=== PATIENT | male | born 1985 | race Hispanic/Latino ===

== ENCOUNTER 2018-01-13 23:37 | Emergency (ER) | payer MEDICAID ==
[2018-01-14 00:12] VITALS: PULSE 89; RESP 18; TEMP 98.4; O2SAT 100
[2018-01-14] MEDS ORDERED: Clindamycin in NS 300 MG/50 ML BAG IVPB STA (01:34)
--- NOTE | 2018-01-14 01:48 | ED PDOC ---
HPI: Skin/Bite Injury Chief Complaint (Provider): Foliculitis/cellulitis History Per: Patient History/Exam Limitations: no limitations Onset/Duration Of Symptoms: Days Current Symptoms Are (Timing): Still Present Location Of Injury: Right: Face, Thigh, Anterior: Abdomen (lower abdomen) <Jillian Hernandez - Last Filed: 01/14/18 06:58> <Keyla Henderson A - Last Filed: 01/14/18 19:15> Time Seen by Provider: 01/14/18 00:19 Chief Complaint (Nursing): Abnormal Skin Integrity Additional Complaint(s): 32 y/o M with H/O ATP, Autoimmune Hemolytic anemia, s/p Splenectomy, Cardiac Arrhythmia, Necrotizing fascitis in left forearm, IV drug abuse presents to ED complaining of redness/swelling of right upper thigh x 3 days. States he may have had an ingrown hair that became infected. Also reports a rash in his face , and pubic area since yesterday. As per patient he thinks he has spread the possible infection of his Right upper thigh to other parts of his body. Denies fevers, chills, dizziness, night sweats o other complains. Denies h/o HIV infection. Denies Hep C and B. PMD: Dr. Jade Mcarthur (Jillian Hernandez) Supervising Attending Note - Supervising Attending Note The Documented history was done by the: Physician Job Superintendent, Attending Physician The documented physical exam was done by the: Physician Job Superintendent, Attending Physician The documented procedures were done by the: Physician Job Superintendent, Attending Physician - Attestation: I have personally seen and examined this patient.: Yes I have fully participated in the care of the patient.: Yes I have reviewed all pertinent clinical information, including history, physical exam and plan: Yes <Keyla Henderson - Last Filed: 01/14/18 19:15> Past Medical History - Medical History PMH: Cardia Arrhythmia, Hyperlipidemia Other PMH: ATP/ Autoimmune Hemolytic anemia - Surgical History Other surgeries: Splenectomy, Congenial heart disease s/p Cardiac Surgery - Family History Family History: States: Unknown Family Hx <Jillian Hernandez - Last Filed: 01/14/18 06:58> <Keyla Henderson - Last Filed: 01/14/18 19:15> Vital Signs: Last Vital Signs Temp 98.4 F 01/14/18 00:07 Pulse 89 01/14/18 03:00 Resp 18 01/14/18 00:07 BP 122/72 01/14/18 03:00 Pulse Ox 100 01/14/18 06:58 - Home Medications Home Medications: Ambulatory Orders Medication Instructions Recorded Clindamycin [Cleocin] 300 mg PO Q8 #30 cap 01/14/18 - Allergies Allergies/Adverse Reactions: Allergies Allergy/AdvReac Type Severity Reaction Status Date / Time No Known Allergies Allergy Verified 01/14/18 00:07 Review of Systems ROS Statement: Except As Marked, All Systems Reviewed And Found Negative (as per HPI) <Jillian Hernandez - Last Filed: 01/14/18 06:58> Physical Exam - Reviewed Nursing Documentation Reviewed: Yes Vital Signs Reviewed: Yes - Physical Exam Appears: Positive for: Non-toxic, No Acute Distress Head Exam: Positive for: ATRAUMATIC, NORMOCEPHALIC Skin: Positive for: Normal Color, Warm, Dry, Rash (papular erythematous rash noted in face, suprapubic area, associated with abrasion from possible scratching) Cardiovascular/Chest: Positive for: Regular Rate, Rhythm. Negative for: Chest Non Tender, Edema Respiratory: Positive for: Normal Breath Sounds. Negative for: Decreased Breath Sounds, Accessory Muscle Use, Crackles, Rales, Rhonchi, Stridor, Wheezing , Respiratory Distress Gastrointestinal/Abdominal: Positive for: Soft. Negative for: Tenderness, Distended, Guarding, Rebound Back: Positive for: Normal Inspection. Negative for: L CVA Tenderness, R CVA Tenderness Neurologic/Psych: Positive for: Alert, Oriented <Jillian Hernandez - Last Filed: 01/14/18 06:58> - Laboratory Results Result Diagrams: 01/14/18 02:10 01/14/18 02:10 - ECG O2 Sat by Pulse Oximetry: 100 <Jillian Hernandez - Last Filed: 01/14/18 06:58> - Laboratory Results Result Diagrams: 01/14/18 02:10 01/14/18 02:10 <Keyla Henderson - Last Filed: 01/14/18 19:15> Medical Decision Making <Jillian Hernandez - Last Filed: 01/14/18 06:58> <Keyla Henderson - Last Filed: 01/14/18 19:15> Medical Decision Making: Folliculitis -with mild Cellulitis in right upper thigh -afebrile, Rest of VS WNL -CBC, CMP -Blood culture x 1 -clindamycin 300 mg IM once re-evaluation case discussed with Dr. Henderson Re-evaluation no leukocytosis in CBC CMP WNL No evidence of sepsis in this evaluation Stable for DC in PO clindamycin 300 mg po Q8 x 10 days strongly recommended f/u as outpatient in 2-3 days with PMD (Jillian Hernandez) Disposition - Patient ED Disposition Is Patient to be Admitted: No Discussed With DrJared: Keyla Henderson - Disposition Disposition: Routine/Home Disposition Time: 02:54 <Jillian Hernandez - Last Filed: 01/14/18 06:58> <Keyla Henderson - Last Filed: 01/14/18 19:15> - Clinical Impression Clinical Impression: Cellulitis, Folliculitis - Disposition Condition: GOOD Additional Instructions: Follow up primary doctor in 2-3 days. Return to emergency room if skin symptoms start getting worse, and/or fevers, chills, or other worrisome sign/symptom. Prescriptions: Clindamycin [Cleocin] 300 mg PO Q8 #30 cap Instructions: Cellulitis (Skin Infection), Adult (DC), Folliculitis Forms: [facility] (Malay) Print Language: MALDIVIAN
[2018-01-14 02:27] LABS: BASO # 0.1 K/uL (0.0-0.2); BASO % 0.8 % (0.0-2.0); EOS # 0.6 K/uL (0.0-0.7); EOS % 7.3 % (0.0-4.0); HEMOGLOBIN 14.9 g/dL (12.0-18.0); LYMPH # 1.2 K/uL (1.0-4.3); LYMPH % 14.3 % (20.0-40.0); MEAN CELL VOLUME 94.4 fl (80.0-94.0); MEAN CORPUSCULAR HEMOGLOBIN 31.5 pg (27.0-31.0); MEAN CORPUSCULAR HGB CONC 33.3 g/dL (33.0-37.0); MEAN PLATELET VOLUME 8.7 fl (7.2-11.7); MONO # 0.9 K/uL (0.0-0.8); MONO % 10.5 % (0.0-10.0); NEUT # 5.5 K/uL (1.8-7.0); NEUT % 67.1 % (50.0-75.0); NRBC % 0.2 % (0.0-0.0); RBC 4.73 Mil/uL (4.40-5.90); WHITE BLOOD COUNT 8.2 K/uL (4.8-10.8)
[2018-01-14 02:34] LABS: ALB/GLOB RATIO 1.8 (1.0-2.1); ALBUMIN 4.5 g/dL (3.5-5.0); CALCIUM 9.3 mg/dL (8.4-10.2); GFR NON-AFRICAN AMERICAN > 60
[2018-01-14 02:36] LABS: ALT/SGPT 47 U/L (21-72); AST/SGOT 50 U/L (17-59); BLOOD UREA NITROGEN 14 mg/dl (9-20)
[2018-01-14 03:03] VITALS: BP 122/72
== END 2018-01-14 03:12 | disposition home or self-care (01) ==
LOC: H.ER 23:37
DX: L03.115 Cellulitis of right lower limb (principal); L73.9 Follicular disorder, unspecified; E78.5 Hyperlipidemia, unspecified; Z90.81 Acquired absence of spleen